=== PATIENT | male | born 1995 | race Hispanic/Latino ===

== ENCOUNTER 2021-05-16 07:32 | Emergency (ER) | payer BC ==
[2021-05-16] MEDS ORDERED: BENZONATATE 100 MG CAP PO ONE (08:22)
[2021-05-16] MEDS ORDERED: IBUPROFEN 400 MG TAB ONE (08:22)
[2021-05-16 10:16] LABS: SARS-COV-2 RT PCR POSITIVE (NEGATIVE)
--- NOTE | 2021-05-16 10:32 | EDPHYS ---
Physician Documentation [facility] Name: Carlo Dawn Age: 25 yrs Sex: Male : 1995 Arrival Date: 05/16/2021 Time: 07:44 Bed DIS9 Private MD: ED Physician Raman Leal HPI: 05/16 08:15 This 25 yrs old Male presents to ER via Ambulatory with complaints of Fever, cp bodyaches, Cough. 08:15 The patient or guardian reports cough, that is intermittent, flu symptoms, headache, cp body aches. 08:15 Onset: The symptoms/episode began/occurred 3 day(s) ago. Associated signs and symptoms: cp Pertinent positives: fever, sore throat, Pertinent negatives: chest pain, diarrhea, vomiting. Historical: - Allergies: 07:48 No Known Allergies; calle - Home Meds: 08:34 None [Active]; jl7 - PMHx: 08:34 None; jl7 - PSHx: 08:34 None; jl7 - Immunization history:: Adult Immunizations up to date. - Social history:: Smoking status: Patient denies any tobacco usage or history of. ROS: 08:20 Eyes: Negative for injury, pain, redness, and discharge. cp 08:20 Constitutional: Positive for body aches, fever, Negative for poor PO intake. 08:20 ENT: Positive for sore throat, Negative for drainage from ear(s), ear pain, difficulty swallowing, difficulty handling secretions. 08:20 Cardiovascular: Negative for chest pain. 08:20 Respiratory: Positive for cough, Negative for shortness of breath, wheezing. 08:20 Abdomen/GI: Negative for abdominal pain, vomiting, diarrhea, constipation. 08:20 Neuro: Positive for headache, Negative for altered mental status, weakness. 08:20 All other systems are negative. Exam: 08:30 Constitutional: The patient appears in no acute distress, alert, awake, non-toxic, well cp developed, well nourished. 08:30 Head/Face: Normocephalic, atraumatic. cp 08:30 Eyes: Periorbital structures: appear normal, Conjunctiva: normal, no exudate, no injection, Sclera: no appreciated abnormality, Lids and lashes: appear normal, bilaterally. 08:30 ENT: External ear(s): are unremarkable, Ear canal(s): are normal, clear, TM's: bulging, is not appreciated, bilaterally, dullness, bilaterally, erythema, is not appreciated, bilaterally, Nose: is normal, Mouth: Lips: moist, Oral mucosa: moist, Posterior pharynx: Airway: no evidence of obstruction, patent, Tonsils: with erythema, no enlargement, no exudate, swelling, is not appreciated, erythema, that is mild, exudate, is not appreciated. 08:30 Neck: ROM/movement: is normal, is supple, no range of motions limitations, no meningismus, no nuchal rigidity, Lymph nodes: no appreciated lymphadenopathy. 08:30 Chest/axilla: Inspection: normal. 08:30 Cardiovascular: Rate: tachycardic, Rhythm: regular. 08:30 Respiratory: the patient does not display signs of respiratory distress, Respirations: normal, no use of accessory muscles, no retractions, labored breathing, is not present, Breath sounds: bronchial sounds, that are mild, are heard diffusely, decreased breath sounds, are not appreciated, stridor, is not appreciated, wheezing: is not appreciated. 08:30 Abdomen/GI: Exam negative for discomfort, distension, guarding, Inspection: abdomen appears normal. 08:30 Neuro: Orientation: to person, place \\T\\ time. Mentation: is normal, Motor: moves all fours, strength is normal, Sensation: is normal. Vital Signs: 07:46 BP 134 / 93; Pulse 109; Resp 18; Temp 100.2; Pulse Ox 99% ; Weight 83.91 kg; Height 5 calle ft. 8 in. (172.72 cm); 11:06 Pulse 113; Resp 19; Temp 98.1(O); Pulse Ox 100% on R/A; jl7 07:46 Body Mass Index 28.13 (83.91 kg, 172.72 cm) calle MDM: 07:59 Patient medically screened. cp 09:00 Differential diagnosis: bronchitis, flu, URI, COVID-19, meningitis. cp 10:30 Data reviewed: vital signs, nurses notes, lab test result(s). cp 10:30 Counseling: I had a detailed discussion with the patient and/or guardian regarding: the cp historical points, exam findings, and any diagnostic results supporting the discharge/admit diagnosis, lab results, to return to the emergency department if symptoms worsen or persist or if there are any questions or concerns that arise at home. 10:31 ED course: VSS. Symptoms improved with meds. Discussed positive COVID-19 results. cp Patient appears non-toxic and no signs of respiratory distress. Will discharge to home for continued monitoring and to quarantine with family. 05/16 08:00 Order name: COVID-19/FLU A+B/RSV (Document "Date of Onset" if Symptomatic); Complete cp Time: 05/16 10:21 Interpretation: Reviewed. cp 05/16 08:03 Order name: Strep; Complete Time: : cp 05/16 08:55 Order name: Throat Culture EDMS Administered Medications: 08:35 Drug: Ibuprofen 800 mg Route: PO; jl7 11:07 Follow up: Response: No adverse reaction; Temperature is decreased jl7 08:35 Drug: Tessalon Perle (benzonatate) 200 mg Route: PO; jl7 09:00 Follow up: Response: No adverse reaction jl7 10:40 Not Given (Physician Discretion): Tylenol 1000 mg PO once jl7 Disposition Summary: 05/16/21 10:32 Discharge Ordered Location: Home cp Problem: new cp Symptoms: have improved cp Condition: Stable cp Diagnosis - SARS-associated coronavirus as the cause of diseases classified elsewhere cp - Headache cp Followup: cp - With: Private Physician - When: 2 - 3 days - Reason: Worsening of condition Discharge Instructions: - Discharge Summary Sheet cp - Aspirin and Your Heart cp - COVID-19 cp - Things to Know about the COVID-19 Pandemic - [facility] cp - 10 Things You Can Do to Manage Your COVID-19 Symptoms at Home - [facility] cp - COVID-19: Quarantine vs. Isolation - [facility] cp - Prevent the Spread of COVID-19 if You Are Sick - [facility] cp Forms: - Medication Reconciliation Form cp - Thank You Letter cp - Antibiotic Education cp - Prescription Opioid Use cp Prescriptions: - Bromfed DM 2-30-10 mg/5 mL Oral syrup - take 10 milliliter by ORAL route every 6 hours; 200 milliliter; Refills: 0, cp Product Selection Permitted - Ibuprofen 800 mg Oral Tablet - take 1 tablet by ORAL route every 8 hours As needed take with food; 30 tablet; cp Refills: 0, Product Selection Permitted - Zithromax Z-Guy 250 mg Oral Tablet - take 1 tablet by ORAL route as directed for 5 days Day 1 - take two (2) tablets cp one time. Day 2, 3, 4 , 5 take one (1) tablet once daily.; 6 tablet; Refills: 0, Product Selection Permitted Addendum: 05/18/2021 09:02 Co-signature as Attending Physician, Raman Leal MD I agree with the assessment and c calle plan of care. Signatures: Dispatcher [employer] EDRaman Storey MD MD cha Page, Corey, PA Tiffany Feldman cp, RN RN jl7 Kalli-StagerJohanne RN RN calle
--- NOTE | 2021-05-16 10:32 | ER ---
Nurse's Notes [facility] Name: Carlo Dawn Age: 25 yrs Sex: Male : 1995 Arrival Date: 05/16/2021 Time: 07:44 Bed DIS9 Private MD: Diagnosis: SARS-associated coronavirus as the cause of diseases classified elsewhere;Headache Presentation: 05/16 07:46 Chief complaint: Patient states: fever, bodyaches, cough. Coronavirus screen: Vaccine calle status: Patient reports being unvaccinated. Ebola Screen: Patient reports travel to Ebola-affected area in the 21 days before illness onset. Patient reports having traveled to: [place]. Initial Sepsis Screen: Does the patient meet any 2 criteria? HR > 90 bpm. No. Patient's initial sepsis screen is negative. Does the patient have a suspected source of infection? No. Patient's initial sepsis screen is negative. Risk Assessment: Do you want to hurt yourself or someone else? Patient reports no desire to harm self or others. Onset of symptoms was May 13, 2021. 07:46 Method Of Arrival: Ambulatory calle 07:46 Acuity: DALIA 3 calle Triage Assessment: 07:48 General: Appears in no apparent distress. Behavior is calm, cooperative. Pain: calle Complains of pain in face. Historical: - Allergies: 07:48 No Known Allergies; calle - Home Meds: 08:34 None [Active]; jl7 - PMHx: 08:34 None; jl7 - PSHx: 08:34 None; jl7 - Immunization history:: Adult Immunizations up to date. - Social history:: Smoking status: Patient denies any tobacco usage or history of. Screenin:34 Abuse screen: Denies threats or abuse. Denies injuries from another. Nutritional jl7 screening: No deficits noted. Tuberculosis screening: No symptoms or risk factors identified. Fall Risk None identified. Assessment: 08:34 General: Appears in no apparent distress. uncomfortable, Behavior is calm, cooperative, jl7 appropriate for age. Pain: Denies pain. Neuro: Level of Consciousness is awake, alert, obeys commands, Oriented to person, place, time, situation. Cardiovascular: Patient's skin is warm and dry. Respiratory: Airway is patent Respiratory effort is even, unlabored, Respiratory pattern is regular, symmetrical. Derm: Skin is pink, warm \\T\\ dry. Vital Signs: 07:46 BP 134 / 93; Pulse 109; Resp 18; Temp 100.2; Pulse Ox 99% ; Weight 83.91 kg; Height 5 calle ft. 8 in. (172.72 cm); 11:06 Pulse 113; Resp 19; Temp 98.1(O); Pulse Ox 100% on R/A; jl7 07:46 Body Mass Index 28.13 (83.91 kg, 172.72 cm) calle ED Course: 07:44 Patient arrived in ED. am2 07:48 Triage completed. calle 07:48 Arm band placed on left wrist. calle 07:53 Raman Amaya PA is PHCP. cp 07:53 Raman Leal MD is Attending Physician. cp 08:15 Tiffany Donovan, ADOLFO is Primary Nurse. jl7 08:34 Patient has correct armband on for positive identification. jl7 10:09 COVID-19/FLU A+B/RSV (Document "Date of Onset" if Symptomatic) Sent. [facility] 11:22 No provider procedures requiring assistance completed. Patient did not have IV access jl7 during this emergency room visit. Administered Medications: 08:35 Drug: Ibuprofen 800 mg Route: PO; jl7 11:07 Follow up: Response: No adverse reaction; Temperature is decreased jl7 08:35 Drug: Tessalon Perle (benzonatate) 200 mg Route: PO; jl7 09:00 Follow up: Response: No adverse reaction jl7 10:40 Not Given (Physician Discretion): Tylenol 1000 mg PO once jl7 Outcome: 10:32 Discharge ordered by . 11:22 Discharged to home ambulatory. jl7 11:22 Condition: stable 11:22 Discharge instructions given to patient, Instructed on discharge instructions, follow up and referral plans. medication usage, Demonstrated understanding of instructions, follow-up care, medications, Prescriptions given X 3. 11:22 Patient left the ED. jl7 Signatures: Raman Amaya PA PA cp Martinez, Maria [facility] Tiffany Donovan, RN RN [facility] Meme Can 2 Kalli-StagerJohanne RN RN
[2021-05-16 11:28] VITALS: BP 134/93
[2021-05-16 11:29] VITALS: TEMP 98.1; O2SAT 100
== END 2021-05-16 11:22 | disposition home or self-care (01) ==
LOC: ER 07:32
DX: U07.1 COVID-19 (principal); R51.9 Headache, unspecified
CPT/HCPCS: 87070; 87081; 0241U; 99283